=== PATIENT | male | born 1960 | race Caucasian/White ===

== ENCOUNTER 2020-10-10 01:10 | Observation (INO) | payer OTHER, SELFPAY ==
[~2020-10-10] VITALS: Ht 170.2 cm; Wt 70.8 kg
[2020-10-10 01:18] VITALS: BP 148/90
--- NOTE | 2020-10-10 01:43 | NUR ---
PT TAKEN TO BED 2
--- NOTE | 2020-10-10 01:55 | NUR ---
PT TAKEN TO BED 9
[2020-10-10] MEDS ORDERED: ASPIRIN 325 MG TAB PO ONE (02:25)
[2020-10-10] MEDS ORDERED: NITROGLYCERIN 2% 1 GM PKT TP ONE (02:25)
[2020-10-10] MEDS ORDERED: ENOXAPARIN 80 MG/0.8 ML SYR SUBQ ONE (02:25)
[2020-10-10] MEDS ORDERED: MORPHINE SULFATE 4 MG/ML SYR IVP ONE (02:25)
--- NOTE | 2020-10-10 02:25 | NUR ---
EKG PERFORMED AT BEDSIDE. EKG READS SINUS RHYTHM @ 69
--- NOTE | 2020-10-10 02:35 | NUR ---
60/M C/O ABDOMINAL PAIN WITH N/V; PT STATES HE THINKS HE HAD "FOOD POISONING". PT DESCRIBES PAIN SHARP WITH A SCALE OF 8/10. PT STATED HE HAS VOMITED MULTIPLE TIMES TODAY. PT DENIES ANY FEVER, CHILLS, PAINFUL URINATION. MED HX: DM, HTN, HIGH CHOLESTEROL ALLERGIES: NKDA
[2020-10-10 02:43] LABS: BASOPHILS # (AUTO) 0.2 K/uL (0.00-0.22); BASOPHILS % (AUTO) 1.7 % (0.0-2.0); EOSINOPHILS % (AUTO) 0.3 % (0.0-4.0); HEMATOCRIT 44.1 % (36-52); HEMOGLOBIN 15.3 g/dL (12.0-18.0); LYMPHOCYTES # (AUTO) 0.6 K/uL (2.0-11.5); LYMPHOCYTES % (AUTO) 4.9 % (20.5-51.1); MEAN CORPUSCULAR HEMOGLOBIN 34 pg (27-31); MEAN CORPUSCULAR HGB CONC 35 g/dL (33-37); MONOCYTES # (AUTO) 0.7 K/uL (0.8-1.0); MONOCYTES % (AUTO) 5.7 % (1.7-9.3); NEUTROPHILS # (AUTO) 10.4 K/uL (1.8-7.7); NEUTROPHILS % (AUTO) 87.4 % (42.2-75.2); PLATELET COUNT (AUTO) 185 K/uL (140-450); RED BLOOD CELL COUNT(AUTO) 4.46 MIL/uL (4.20-6.10); RED CELL DISTRIBUTION WIDTH 12.6 % (11.6-13.7); WHITE BLOOD COUNT (AUTO) 11.9 K/uL (4.8-10.8)
--- NOTE | 2020-10-10 02:44 | NUR ---
COVID SHAWN SWAB COLLECTED AND SENT TO LAB
[2020-10-10 02:56] LABS: ANION GAP 18.2 (8-16); CARBON DIOXIDE 26.6 mmol/L (21-32); POTASSIUM 3.8 mmol/L (3.5-5.1)
[2020-10-10 03:09] LABS: CREATINE KINASE MB 0.4 ng/mL (0-3.6)
[2020-10-10 03:15] LABS: CHOL/HDL RATIO 2.8 (1-4.5); TOTAL BILIRUBIN 1.6 mg/dL (0.0-1.0)
[2020-10-10 03:16] LABS: ALBUMIN 4.3 g/dL (3.4-5.0)
--- NOTE | 2020-10-10 03:50 | NUR ---
EKG PERFORMED AT BEDSIDE. EKG READS SINUS RHYTHM @ 61
[2020-10-10] MEDS ORDERED: ONDANSETRON 4 MG/2 ML VIAL ONE ×2 (05:00→17:10)
[2020-10-10] MEDS ORDERED: MORPHINE SULFATE 4 MG/ML SYR ONE (05:01)
--- NOTE | 2020-10-10 05:27 | NUR ---
PT'S OXYGEN LEVEL DROPPED TO 80% ON RA , ERMD MADE AWARE- PT PLACED ON 2L NC , CURRENT OXYGEN LEVEL 100% .
[2020-10-10] MEDS ORDERED: metroNIDAZOLE 500 MG/NS PREMIX 100 ML IV ONE (05:45)
--- NOTE | 2020-10-10 05:57 | NUR ---
blood culture collected and sent to lab
[2020-10-10] MEDS ORDERED: AMLO10TA PO (06:09)
[2020-10-10] MEDS ORDERED: METF500T2 PO (06:09)
[2020-10-10] MEDS ORDERED: ATOR10TA PO (06:09)
--- NOTE | 2020-10-10 07:09 | NUR ---
Received report from Moustapha ACHARYA. Assumed care at this time.
[2020-10-10] MEDS ORDERED: MAGNESIUM OXIDE 400 MG TAB PO PRN (08:30)
[2020-10-10] MEDS ORDERED: POTASSIUM CHLORIDE 10 MEQ TABER PO PRN (08:30)
[2020-10-10] MEDS ORDERED: ONDANSETRON 4 MG/2 ML VIAL IVP PRN ×2 (08:30→18:10)
[2020-10-10] MEDS ORDERED: MAG SULF 2000 MG/WATER PREMIX 50 ML IV PRN (08:30)
[2020-10-10] MEDS ORDERED: NACL 0.9% 1,000 ML IV SCH (08:30)
[2020-10-10] MEDS ORDERED: HYDROcodone/APAP 5/325 MG 1 TAB TAB PO PRN (08:30)
[2020-10-10] MEDS ORDERED: ACETAMINOPHEN 325 MG TAB PO PRN (08:30)
[2020-10-10] MEDS ORDERED: KCL 20 MEQ/WATER INJ PREMIX 200 ML IV PRN (08:30)
[2020-10-10] MEDS ORDERED: MORPHINE SULFATE 4 MG/ML SYR IVP PRN (08:30)
[2020-10-10] MEDS ORDERED: DEXTROSE 50% 50 ML SYR IVP PRN (08:35)
[2020-10-10] MEDS ORDERED: ONDANSETRON 4 MG/2 ML VIAL IVP ONE (08:35)
--- NOTE | 2020-10-10 09:09 | NUR ---
DC PLANN[age] YRS OLD MALE PATIENT WAS ADMITTED FROM HOME WITH A DX OF ACUTE CHOLECYSTITIS. PT HAS A HX OF DM AND HTN. CXR SHOWED NO ACUTE CARDIOPULMONARY DISEASE. RAPID COVID TEST NEGATIVE. CT ABD/PELVIS SHOWED DISTENDED GALLBLADDER AND US GALLBLADDER SHOWED CHOLELITHIASIS. ADMINISTERED IVF, IV ABX ZOSYN AND PAIN MEDS. CONSULTED WITH SURGEON DR ROWAN FOR POSSIBLE LAP BRANDO. DC PLAN TO GO HOME WHEN STABLE CM TO FOLLOW
[2020-10-10] MEDS ORDERED: LACTATED RINGERS 1,000 ML IV ONE (09:35)
[2020-10-10 10:16] LABS: PROTHROMBIN TIME 10.4 secs (10.8-13.4)
--- NOTE | 2020-10-10 11:00 | NUR ---
Patient resting, no complaints at this time. Patient on bedside monitoring and evaluation advisor, vital signs stable.
[2020-10-10] MEDS: BLOOD GLUCOSE MONITORING 1 DEV DEV FS SCH ×3 (11:35→21:34)
[2020-10-10] MEDS: INSULIN LISPRO SLIDING SCALE 100 UNITS/ML VIAL SUBQ PRN ×2 (11:40→21:35)
--- NOTE | 2020-10-10 11:47 | NUR ---
MRSA swab collected and walked down to lab.
[2020-10-10] MEDS ORDERED: PIPERACILLIN/TAZOBACTAM 3.375 GM in DEXTROSE 5% 50 ML IV SCH ×4 (12:00)
[2020-10-10] MEDS ORDERED: PIPERACILLIN/TAZOBACTAM 3.375 GM VIAL IV ONE ×2 (12:08→17:21)
--- NOTE | 2020-10-10 13:54 | NUR ---
REPORT GIVEN TO MARCK HARDING. PATIENT TO BE TAKEN TO ROOM 125B
[2020-10-10 14:30] VITALS: BP 146/62
--- NOTE | 2020-10-10 14:30 | NUR ---
PRIOR TO PATIENTS ARRIVAL, RECEIVED REPORT FROM ED NURSE. PT RESTING IN BED. ABLE TO MAKE SOME NEEDS KNOWN. RESPIRATIONS EVEN AND UNLABORED WITH NO SOB OR RESPIRATORY DISTRESS. SKIN WARM AND DRY TO TOUCH. IV SITE IN RAC 18G IS CLEAN, DRY, AND INTACT. MRSA SWAB COLLECTED AND SENT. SAFETY MEASURES IN PLACE. WILL CONTINUE TO MONITOR
--- NOTE | 2020-10-10 15:15 | NUR ---
PT RESTING IN BED. ABLE TO MAKE SOME NEEDS KNOWN. RESPIRATIONS EVEN AND UNLABORED WITH NO SOB OR RESPIRATORY DISTRESS. SKIN WARM AND DRY TO TOUCH. SAFETY MEASURES IN PLACE. WILL CONTINUE TO MONITOR
[2020-10-10] MEDS ORDERED: LIDOCAINE 1% 500 MG/50 ML VIAL ONE (15:38)
[2020-10-10] MEDS ORDERED: BUPIVACAINE-MPF/EPI 0.25% 30 ML VIAL INJ ONE (15:38)
--- NOTE | 2020-10-10 16:27 | NUR ---
USED [employer] MAILING MACHINE OPERATOR RAMYA [id number] FOR CONSENT. PT VERBALIZED UNDERSTANDING AND IN AGREEMENT. PT OFF TO OR. REPORT GIVEN AT BEDSIDE. SAFETY MEASURES IN PLACE. WILL CONTINUE TO MONITOR
[2020-10-10] MEDS ORDERED: PROPOFOL 200 MG/20 ML VIAL IV ONE (17:10)
[2020-10-10] MEDS ORDERED: METOCLOPRAMIDE 10 MG/2 ML INJ VIAL ONE (17:10)
[2020-10-10] MEDS ORDERED: DEXAMETHASONE 4 MG/ML VIAL ONE (17:10)
[2020-10-10] MEDS ORDERED: GLYCOPYRROLATE 0.2 MG/ML VIAL ONE (17:10)
[2020-10-10] MEDS ORDERED: LIDOCAINE 2% 100 MG/5 ML SYR IVP ONE (17:10)
[2020-10-10] MEDS ORDERED: SEVOFLURANE 250 ML BTL INH ONE (17:10)
[2020-10-10] MEDS ORDERED: fentaNYL citrate 0.05 MG/ML VIAL ONE (17:10)
[2020-10-10] MEDS ORDERED: NEOSTIGMINE 1:1000 10 MG/10 ML VIAL ONE (17:10)
[2020-10-10] MEDS ORDERED: SUCCINYLCHOLINE CHLORIDE 200 MG/10 ML VIAL IVP ONE (17:10)
[2020-10-10] MEDS ORDERED: MIDAZOLAM 2 MG/2 ML VIAL ONE (17:10)
[2020-10-10] MEDS: PIPERACILLIN/TAZOBACTAM 3.375 GM in DEXTROSE 5% 50 ML IV SCH (18:00)
[2020-10-10] MEDS: LACTATED RINGERS 1,000 ML IV SCH (18:10)
[2020-10-10] MEDS ORDERED: diphenhydrAMINE 50 MG/ML VIAL IVP PRN (18:10)
[2020-10-10] MEDS ORDERED: BLOOD GLUCOSE MONITORING 1 DEV DEV FS ONE (18:10)
[2020-10-10] MEDS ORDERED: HYDROmorphone 1 MG/ML AMP IVP PRN (18:10)
[2020-10-10] MEDS ORDERED: MEPERIDINE 25 MG/ML SYR IVP PRN (18:10)
--- NOTE | 2020-10-10 18:15 | NUR ---
PT STILL IN OR. SAFETY MEASURES IN PLACE. WILL CONTINUE TO MONITOR
--- NOTE | 2020-10-10 19:27 | NUR ---
ENDORSED AT BEDSIDE TO NIGHTSHIFT FOR CONTINUITY OF CARE
--- NOTE | 2020-10-10 19:28 | NUR ---
RECEIVED ENDORSEMENT FROM AM SHIFT RN. PATIENT IS NOT IN THE UNIT, PLAN OF CARE DISCUSSED.
[2020-10-10] MEDS ORDERED: HYDROmorphone PFS 2 MG/ML SYR ONE (19:52)
--- NOTE | 2020-10-10 20:10 | NUR ---
PATIENT CAME BACK FROM SURGERY, DENIES PAIN, V/S TAKEN, 160/73 HR 82, OR NURSE SAID THAT IT'S EVEN HIGHER WHEN PT WAS ON SURGERY, ALSO SHE MENTIONED THAT SHE GAVE DILAUDID LIKE AROUND 1950 SO IT WENT DOWN ALREADY. PT IS NOT IN DISTRESS, AAOX4, WILL MONITOR V/S Q 15 MINS FOR AN HOUR THEN Q30 MINS FOR AN HOUR. CHECKED OPERATED SITE, W/ 2 RT ABD INCISIONS W/ BROWN DRESSING AND 2 MIDDLE ABD AREA INCISIONS W/ DERMABOND. SAFETY MEASURES IN PLACE, KEPT COMFORTABLE, CALL LIGHT WITHIN REACH.
--- NOTE | 2020-10-10 20:40 | NUR ---
FOUND PT ON ROOM AIR WITH SPO2 OF 88%. PLACED PT ON 2L NC. SPO2 97%. PT TOLERATING WELL. INCENTIVE SPIROMETER COMPLETED AT THIS TIME. 10 BREATHS WITH AVERAGE VOLUME OF 1600ML. WILL CONTINUE TO MONITOR PT.
--- NOTE | 2020-10-10 21:25 | NUR ---
NOTICED PT'S TEMP WAS 100 F. COOLING MEASURES DONE, BP 134/69 HR 82, 0/10, WILL CONTINUE TO MONITOR.
--- NOTE | 2020-10-10 21:42 | NUR ---
Blood sugar 240, humalog 4 units given per sliding scale, kept comfortable, call light within reach.
--- NOTE | 2020-10-10 21:55 | NUR ---
V/S 120/61 HR 70, 99.5, 18, 0/10, WILL CONTINUE TO MONITOR, CALL LIGHT WITHIN REACH.
[2020-10-11] MEDS: PIPERACILLIN/TAZOBACTAM 3.375 GM in DEXTROSE 5% 50 ML IV SCH ×3 (00:27→11:41)
[2020-10-11] MEDS: LACTATED RINGERS 1,000 ML IV SCH ×2 (00:33→10:50)
--- NOTE | 2020-10-11 00:39 | NUR ---
ZOSYN IV GIVEN ORDERED, NO A/R NOTED, WILL CONTINUE TO MONITOR, CALL LIGHT WITHIN REACH.
--- NOTE | 2020-10-11 02:19 | NUR ---
PATIENT IS SLEEPING, RESPIRATION EVEN AND UNLABORED, CALL LIGHT WITHIN REACH.
[2020-10-11 04:00] VITALS: BP 122/68
[2020-10-11] MEDS: BLOOD GLUCOSE MONITORING 1 DEV DEV FS SCH ×3 (06:13→16:40)
--- NOTE | 2020-10-11 06:14 | NUR ---
ZOSYN IV GIVEN ORDERED, NO A/R NOTED, BLOOD SUGAR 150, NO COV NEEDED, WILL CONTINUE TO MONITOR, CALL LIGHT WITHIN REACH.
[2020-10-11 06:23] LABS: BASOPHILS % (AUTO) 0.2 % (0.0-2.0); HEMATOCRIT 35.5 % (36-52); HEMOGLOBIN 12.3 g/dL (12.0-18.0); LYMPHOCYTES # (AUTO) 0.9 K/uL (2.0-11.5); LYMPHOCYTES % (AUTO) 7.2 % (20.5-51.1); MEAN CORPUSCULAR HEMOGLOBIN 35 pg (27-31); MEAN CORPUSCULAR HGB CONC 35 g/dL (33-37); MEAN CORPUSCULAR VOLUME 100.7 fL (80-94); MONOCYTES # (AUTO) 1.1 K/uL (0.8-1.0); NEUTROPHILS # (AUTO) 9.9 K/uL (1.8-7.7); NEUTROPHILS % (AUTO) 83.6 % (42.2-75.2); PLATELET COUNT (AUTO) 126 K/uL (140-450); RED BLOOD CELL COUNT(AUTO) 3.52 MIL/uL (4.20-6.10); RED CELL DISTRIBUTION WIDTH 12.4 % (11.6-13.7); WHITE BLOOD COUNT (AUTO) 11.8 K/uL (4.8-10.8)
[2020-10-11 06:52] LABS: ALBUMIN 2.9 g/dL (3.4-5.0); ANION GAP 10.8 (8-16); CARBON DIOXIDE 28.9 mmol/L (21-32); CREATININE 1.1 mg/dL (0.6-1.3); POTASSIUM 3.7 mmol/L (3.5-5.1); TOTAL BILIRUBIN 1.7 mg/dL (0.0-1.0)
--- NOTE | 2020-10-11 07:30 | NUR ---
PT STABLE, BEDSIDE ENDORSEMENT GIVEN TO AM NURSE FOR CONTINUITY OF CARE.
--- NOTE | 2020-10-11 07:33 | NUR ---
RECEIVED REPORT FROM NIGHT NURSE PT IS AOOX4 ON ROOM AIR, S/P LAP BRANDO 10/10/[address] ROWAN, LAST BLOOD SUGAR 150 MG/DL, AMBULATORY, IV INTACT ON RIGHT AC, SKIN INTACT WITH 4 DERMABOND. SAFETY MEASURES IN PLACE AND CALL LIGHT WITHIN REACH. WILL CONTINUE TO MONITOR.
[2020-10-11 08:00] VITALS: BP 125/60
--- NOTE | 2020-10-11 08:08 | NUR ---
PATIENT HAS BEEN SCREENED AND CATEGORIZED LOW NUTRITION RISK. PATIENT WILL BE SEEN WITHIN 7 DAYS OF ADMISSION. 10/16/[address]
--- NOTE | 2020-10-11 10:00 | NUR ---
MADE ROUNDS PAT IS SLEEPING NO DISTRESS NOTED AND DENIES PAIN.
--- NOTE | 2020-10-11 11:40 | NUR ---
BLOOD SUGAR 142 MG/DL NO INSULIN COVERAGE AND MEDICATION DUE GIVEN INFUSING WELL.
--- NOTE | 2020-10-11 13:37 | NUR ---
WOUND ASSESSMENT DONE DRY AND INTACT AND FEELS PAIN EVERY TIME HE COUGHS.
[2020-10-11] MEDS ORDERED: CEPH250C16 PO (16:36)
[2020-10-11] MEDS: INSULIN LISPRO SLIDING SCALE 100 UNITS/ML VIAL SUBQ PRN (16:41)
--- NOTE | 2020-10-11 16:42 | NUR ---
BLOOD SUGAR 181 MG/DL INSULIN COVERAGE 2 UNITS GIVEN.
--- NOTE | 2020-10-11 18:20 | NUR ---
PT WAS GIVEN DISCHARGE INSTRUCTIONS AND EDUCATED TO FOLLOW UP WITH [facility] WITHIN 1O DAYS. PT SHOWED UNDERSTANDING OF DISCHARGE INSTRUCTIONS BY THE TEACHBACK METHOD. IVX2 RA WERE DC'D. PT TOLERATED PROCEDURE WELL. IV CATHETERS WERE INTACT AND PATENT. NO BLEEDING WAS NOTED UPON DISCHARGE. PT CHANGED OWN CLOTHES AND TOOK ALL OF BELONGINGS. REMOVED ID BANDS, ESCORTED PT TO FRONT LOBBY VIA WHEELCHAIR PT ID DISCHARGED HOME ACCOMPANIED BY FAMILY PT IS STABLE.
== END 2020-10-11 18:20 | disposition home or self-care (01) ==
LOC: MED 01:10 → MMU 08:33
PROVIDERS: ADMIT Hospitalist; ATTEND Hospitalist
DX: K80.00 Calculus of gallbladder with acute cholecystitis without obstruction (principal); I10 Essential (primary) hypertension; E78.00 Pure hypercholesterolemia, unspecified; E11.9 Type 2 diabetes mellitus without complications; D72.829 Elevated white blood cell count, unspecified; Z79.899 Other long term (current) drug therapy
CPT/HCPCS: 36415; 47563; 71045; 74176; 76705; 80053; 80061; 82550; 82553; 82948; 83036; 83880; 84484; 85025; 85379; 85610; 85730; 86886; 86900; 86901; 87040; 87081; 87426; 88304; 93005; 94760; 96361; 96365; 96366; 96367; 96372; 96375; 99285; C1887; G0378; J0330; J1100; J1170; J1650; J1815; J2001; J2250; J2270; J2405; J2543; J2704; J2710; J2765; J3010; J3490; J7030; J7060; 77003